=== PATIENT | female | born 1995 | race Caucasian/White ===

== ENCOUNTER 2016-07-08 11:48 | Emergency (ER) | payer BC ==
[~2016-07-08] VITALS: Ht 160 cm; Wt 78.0 kg
[~2016-07-08 11:48] MED LIST: ETONMIS VAGRING; SERT50TA PO
[2016-07-08 11:50] VITALS: Ht 160 cm; Wt 78.0 kg
[2016-07-08] MEDS ORDERED: HYDR25CA PO (12:05)
[2016-07-08] MEDS ORDERED: ESCI1TAB10 PO (12:05)
[2016-07-08 12:32] LABS: BASO % 0.4 %; BASO ABS # 0.04 K/uL (0-0.2); COMPLETE YES; EOS % 0.9 %; HEMATOCRIT 39.9 % (37-47); IG% 0.4 %; LYMPH % 21.6 %; LYMPH ABS # 2.19 K/uL (1.2-3.4); MEAN CELL VOLUME 86.6 fL (80-100); MEAN CORPUSCULAR HEMOGLOBIN 30.4 pg (25-34); MEAN CORPUSCULAR HGB CONC 35.1 g/dl (32-36); MEAN PLATELET VOLUME 10.5 fL (7.4-10.4); MONO % 10.5 %; NEUT % 66.2 %; PLATELET COUNT 290 K/uL (130-400); RED BLOOD COUNT 4.61 M/uL (4.2-5.4); WHITE BLOOD COUNT 10.15 K/uL (4.8-10.8)
[2016-07-08 13:03] LABS: CALCIUM 9.2 mg/dl (8.5-10.1); CREATININE 0.71 mg/dl (0.60-1.20); POTASSIUM 3.9 mmol/L (3.5-5.1)
[2016-07-08 13:06] LABS: ALB/GLOB RATIO 1.1 (0.9-2)
--- NOTE | 2016-07-08 13:11 | DIAGNOSTIC IMAGING REPORT ---
CHEST AND ABDOMEN 2 VIEWS HISTORY: LUQ ABDOMINAL PAIN/worse with inspiration COMPARISON: Chest and abdominal series 06/05/2014. FINDINGS: The lungs are clear. The cardiomediastinal silhouette is within normal limits. There is no pneumoperitoneum or pneumatosis. The bowel gas pattern is unremarkable. No evidence for bowel obstruction. No pathologic calcifications. IMPRESSION: No acute cardiopulmonary process. No evidence for bowel obstruction. Electronically signed by: Melvin Thompson M.D. 07/08/2016 1:09 PM Dictated Date/Time: 07/08/2016 1:08 PM
[2016-07-08 13:37] LABS: URINE APPEARANCE CLOUDY (CLEAR); URINE BILIRUBIN NEG (NEG); URINE COLOR YELLOW; URINE EPITHELIAL CELL AUTO >30 /lpf (0-5); URINE NITRITE NEG (NEG); URINE SPECIFIC GRAVITY 1.017 (1.000-1.030); UROBILINOGEN NEG (NEG); ZZUR CULT IF INDIC CLEAN CATCH YES
[2016-07-08 13:39] LABS: MANUAL MICROSCOPIC REQUIRED? NO; REVIEW REQ? NO
[2016-07-08] MEDS ORDERED: OPTIRAY 320 IV PRN (13:45)
--- NOTE | 2016-07-08 14:37 | DIAGNOSTIC IMAGING REPORT ---
CHEST CTA for PULMONARY ARTERIES CT DOSE: 343.73 mGy.cm HISTORY: Left-sided chest pain. Short of breath. TECHNIQUE: Multiaxial CT images of the chest were performed following the intravenous administration of contrast to evaluate the pulmonary arteries. Maximal intensity projection images were also obtained. COMPARISON STUDY: None. FINDINGS: There is a normal caliber thoracic aorta with no evidence for dissection. There is no evidence for pulmonary embolus. No pleural effusions. No pneumothorax. The liver and spleen are unremarkable. No mediastinal or hilar lymphadenopathy. The central airways are patent. Small amount of residual thymic tissue. No focal lung consolidations to suggest pneumonia. Minimal dependent changes seen within the lungs posteriorly. IMPRESSION: No evidence for pulmonary embolus. Electronically signed by: Melvin Thompson M.D. 07/08/2016 2:35 PM Dictated Date/Time: 07/08/2016 2:27 PM
[2016-07-08] MEDS ORDERED: TRAM-10 PO (15:01)
[2016-07-08 15:09] VITALS: BP 148/85; PULSE 78; TEMP 36.6; O2SAT 98
--- NOTE | 2016-07-08 16:22 | EMERGENCY ROOM VISIT NOTE ---
History First contact with patient: 11:57 Chief Complaint: RIB PAIN Stated Complaint: ABD PAIN History of Present Illness The patient is a 20 year old female who presents to the Emergency Room with complaints of left upper quadrant abdominal/rib pain that radiates around to the side. The patient reports that she has had this discomfort for the past 4 days. She initially had nausea and abdominal discomfort. Within 24 hours, she had an episode of vomiting as well. She denies any diarrhea. She does report that her bowel movements have not been as regular as they have been. She denies any history of chronic constipation. She denies any dark stools, mucus or bloody stools. She denies any other history of GI disease. The patient reports that her pain is worsened with deep breathing. She does report mild shortness of breath as well. She denies any history of cardiopulmonary disease. Her grandfather had a history of blood clots. The patient denies any recent injury. She has had no fevers or chills or recent upper respiratory infection. She rates her discomfort a 7 out of 10. The patient does admit to marijuana use, but denies any other illicit drug use or intravenous recreational drugs. Review of Systems HEENT: Denies dizziness, visual problems, hearing loss, tinnitus. Denies difficulty swallowing or oral lesions. PULMONARY: Denies cough, sputum production or hemoptysis. Otherwise see history of present illness with complain of mild shortness of breath. CARDIOVASCULAR: Denies generalized chest pain, palpitations, dyspnea on exertion, orthopnea or peripheral edema. GASTROINTESTINAL: See history of present illness. GENITOURINARY: Denies dysuria, frequency, urgency or nocturia. NEUROLOGIC: Denies history of epilepsy, CVA, TIA or chronic headaches. MUSCULOSKELETAL: Denies history of joint tenderness/swelling. SKIN: Denies rashes or lesions. PSYCHIATRIC: Denies history of depression or mental illness. ENDOCRINE: Denies history of diabetes or thyroid disorders. Past Medical/Surgical History Medical Problems: (1) Acute appendicitis (2) Acute Appendicitis Nos Surgical Problems: (1) S/P appendectomy Family History Patient reports no known family medical history. Social History Smoking Status: Never Smoker Drug Use: none Marital Status: single Housing Status: lives with family Occupation Status: student Current/Historical Medications Scheduled Escitalopram Oxalate (Lexapro), 20 MG PO DAILY Scheduled PRN Hydroxyzine Pamoate (Vistaril), 25 MG PO DAILY PRN for Anxiety Tramadol (Ultram), 1-2 TAB PO Q4H PRN for Pain Allergies Coded Allergies: No Known Allergies (Unverified , 06/01/14) Physical Exam Vital Signs Date Time Temp Pulse Resp B/P Pulse Ox O2 Delivery O2 Flow Rate FiO2 07/08/16 15:09 36.6 78 20 148/85 98 07/08/16 13:21 78 20 148/85 98 Room Air 07/08/16 11:50 36.6 101 18 133/93 98 Room Air Physical Exam CONSTITUTIONAL: Healthy and well nourished. Alert and oriented X 3 with positive affect. She does not appear in any acute distress. HEENT: Normocephalic, atraumatic. Pupils equal, round and reactive. Ears and nares are clear. No scleral icterus or conjunctival injection/pallor. OROPHARYNX: No tonsillar hypertrophy or exudates. NECK: Full active range of motion without discomfort. RESPIRATORY: Clear to auscultation bilaterally with no wheezing, crackles, rhonchi or stridor. Deep breathing does cause mild discomfort. CARDIOVASCULAR: Regular rate and rhythm with no murmurs, rubs or gallops. GASTROINTESTINAL: Bowel sounds present in all quadrants. Patient has mild left upper quadrant tenderness to palpation. Positive CVA tenderness. No abdominal rigidity, guarding or rebound. No focal left lower quadrant or suprapubic tenderness to palpation. MUSCULOSKELETAL: Full range of motion of all joints without discomfort. INTEGUMENTARY: No rash or other significant dermatologic conditions noted. HEMATOLOGIC: No ecchymosis or petechiae. NEUROLOGIC: No focal neurologic deficits noted. Medical Decision & Procedures ER Provider Diagnostic Interpretation: My interpretation of an ECG shows a normal sinus rhythm of [address] elevation or other conduction abnormalities. My interpretation of an abdomen obstruction series with PA chest does not show any obstructive pattern or lung consolidations. Radiologist report is as follows: CHEST AND ABDOMEN 2 VIEWS HISTORY: LUQ ABDOMINAL PAIN/worse with inspiration COMPARISON: Chest and abdominal series 06/05/2014. FINDINGS: The lungs are clear. The cardiomediastinal silhouette is within normal limits. There is no pneumoperitoneum or pneumatosis. The bowel gas pattern is unremarkable. No evidence for bowel obstruction. No pathologic calcifications. IMPRESSION: No acute cardiopulmonary process. No evidence for bowel obstruction. Chest CT angiography does not show any evidence for pulmonary emboli, pneumonia , pneumothorax or other acute findings. Radiologist report is as follows: CHEST CTA for PULMONARY ARTERIES CT DOSE: 343.73 mGy.cm HISTORY: Left-sided chest pain. Short of breath. TECHNIQUE: Multiaxial CT images of the chest were performed following the intravenous administration of contrast to evaluate the pulmonary arteries. Maximal intensity projection images were also obtained. COMPARISON STUDY: None. FINDINGS: There is a normal caliber thoracic aorta with no evidence for dissection. There is no evidence for pulmonary embolus. No pleural effusions. No pneumothorax. The liver and spleen are unremarkable. No mediastinal or hilar lymphadenopathy. The central airways are patent. Small amount of residual thymic tissue. No focal lung consolidations to suggest pneumonia. Minimal dependent changes seen within the lungs posteriorly. IMPRESSION: No evidence for pulmonary embolus. Laboratory Results 07/08/16 11:25 Red Blood Count 4.61, Mean Corpuscular Volume 86.6, Mean Corpuscular Hemoglobin 30.4, Mean Corpuscular Hemoglobin Concent 35.1, Mean Platelet Volume 10.5, Neutrophils (%) (Auto) 66.2, Lymphocytes (%) (Auto) 21.6, Monocytes (%) (Auto) 10.5, Eosinophils (%) (Auto) 0.9, Basophils (%) (Auto) 0.4, Neutrophils # (Auto ) 6.72, Lymphocytes # (Auto) 2.19, Monocytes # (Auto) 1.07, Eosinophils # (Auto ) 0.09, Basophils # (Auto) 0.04 07/08/16 12:14 Test 07/08/16 11:25 07/08/16 12:14 07/08/16 12:39 07/08/16 13:27 White Blood Count 10.15 K/uL (4.8-10.8) Red Blood Count 4.61 M/uL (4.2-5.4) Hemoglobin 14.0 g/dL (12.0-16.0) Hematocrit 39.9 % (37-47) Mean Corpuscular Volume 86.6 fL (80-100) Mean Corpuscular Hemoglobin 30.4 pg (25-34) Mean Corpuscular Hemoglobin Concent 35.1 g/dl (32-36) Platelet Count 290 K/uL (130-400) Mean Platelet Volume 10.5 fL (7.4-10.4) Neutrophils (%) (Auto) 66.2 % Lymphocytes (%) (Auto) 21.6 % Monocytes (%) (Auto) 10.5 % Eosinophils (%) (Auto) 0.9 % Basophils (%) (Auto) 0.4 % Neutrophils # (Auto) 6.72 K/uL (1.4-6.5) Lymphocytes # (Auto) 2.19 K/uL (1.2-3.4) Monocytes # (Auto) 1.07 K/uL (0.11-0.59) Eosinophils # (Auto) 0.09 K/uL (0-0.5) Basophils # (Auto) 0.04 K/uL (0-0.2) RDW Standard Deviation 41.1 fL (36.4-46.3) RDW Coefficient of Variation 12.9 % (11.5-14.5) Immature Granulocyte % (Auto) 0.4 % Immature Granulocyte # (Auto) 0.04 K/uL (0.00-0.02) Anion Gap 5.0 mmol/L (3-11) Est Creatinine Clear Calc Drug Dose 126.0 ml/min Estimated GFR () 143.1 Estimated GFR (Non- 123.5 BUN/Creatinine Ratio 11.0 (10-20) Calcium Level 9.2 mg/dl (8.5-10.1) Total Bilirubin 0.5 mg/dl (0.2-1) Aspartate Amino Transf (AST/SGOT) 15 U/L (15-37) Alanine Aminotransferase (ALT/SGPT) 21 U/L (12-78) Alkaline Phosphatase 117 U/L (45-117) Total Protein 7.7 gm/dl (6.4-8.2) Albumin 4.0 gm/dl (3.4-5.0) Globulin 3.7 gm/dl (2.5-4.0) Albumin/Globulin Ratio 1.1 (0.9-2) Lipase 108 U/L (73-393) Bedside D-Dimer > 450 ng/mlFEU (0-450) Bedside Troponin I 0.000 ng/ml (0-0.045) Urine Color YELLOW Urine Appearance CLOUDY (CLEAR) Urine pH 8.0 (4.5-7.5) Urine Specific [place] 1.017 (1.000-1.030) Urine Protein NEG (NEG) Urine Glucose (UA) NEG (NEG) Urine Ketones NEG (NEG) Urine Occult Blood NEG (NEG) Urine Nitrite NEG (NEG) Urine Bilirubin NEG (NEG) Urine Urobilinogen NEG (NEG) Urine Leukocyte Esterase SMALL (NEG) Urine WBC (Auto) 1-5 /hpf (0-5) Urine RBC (Auto) 5-10 /hpf (0-4) Urine Hyaline Casts (Auto) 1-5 /lpf (0-5) Urine Epithelial Cells (Auto) >30 /lpf (0-5) Urine Bacteria (Auto) 2+ (NEG) Urine Test NEG (NEG) The above labs were reviewed. D-dimer is elevated. Troponin is normal. The CBC is normal, but the patient does have a mild bandemia and left shift. ED Course Patient history and physical exam were performed. Nurse's notes were reviewed. Vital signs were reviewed and were normal. The patient does appear in mild discomfort. She refused any analgesics or antiemetics. IV access was established, and labs were drawn. ECG and an abdomen obstruction series with PA chest were normal. Labs were reviewed, showing an elevated d-dimer. Troponin and other labs were normal. Did discuss performing chest CT angiography to rule out pulmonary emboli, and the patient was in agreement. CT angiography was normal. At this point, the exact etiology of her pain is unknown. She was instructed to call her PCP at the [facility] office for reevaluation in the next 2-3 days. She was instructed to return to the emergency department for any progressively worsening pain, shortness of breath, fever or other concerning symptoms. The patient was happy with plan of care, voiced understanding of all discharge instructions, and denied any significant discomfort or shortness of breath at the conclusion of my exam. It is noted that prior to discharge, the father did ask that I speak with him outside of the room. He reports that the patient's stepsister noticed that the patient had posted pictures on [employer] she and her friends huffing lizzie. The father also reports that other family members on his 's side have also provided the patient with marijuana, and also made a trip to [place] for marijuana use. He did request that I not discuss this with the patient, therefore this information is provided for the patient's PCP in outpatient follow-up. I also ordered a urine drug screen as well which was pending at the time of dictation. Medical Decision Patient presents to the emergency department with multiple complaints of left upper quadrant abdominal pain, rib pain and shortness of breath. Her workup today is not suggestive of myocardial infarction, pneumothorax, pulmonary emboli , pneumonia, bowel obstruction, pancreatitis, cholecystitis, hepatitis, significant constipation or other significant findings. At this point I do feel that the patient is safe for outpatient follow-up. Impression Primary Impression: Intermittent left upper quadrant abdominal pain Additional Impressions: Rib pain on left side Shortness of breath Departure Information Prescriptions Tramadol (Ultram) 50 Mg Tab 1-2 TAB PO Q4H Y for Pain, #20 TAB For Initial Treatment Prov: Jimmie Mae PA 07/08/16 Referrals No Doctor, Assigned (PCP) Patient Instructions [facility] Problem Qualifiers
== END 2016-07-08 15:14 | disposition home or self-care (01) ==
LOC: C.EDB 11:49
DX: R07.81 Pleurodynia (principal); R10.32 Left lower quadrant pain; R06.02 Shortness of breath; Z87.19 Personal history of other diseases of the digestive system; Z98.890 Other specified postprocedural states; Z79.899 Other long term (current) drug therapy